=== PATIENT | female | born 1945 | race Two or more races ===

== ENCOUNTER 2024-03-22 19:19 | Inpatient (IN) | payer MEDICARE, OTHER ==
[~2024-03-22] VITALS: Ht 162.6 cm; Wt 83.5 kg
[2024-03-22 20:08] LABS: BASOPHILS % (AUTO) 0.4 % (0.0-2.0); EOSINOPHILS % (AUTO) 0.1 % (0.0-6.0); HEMATOCRIT 36 % (33-45); HEMOGLOBIN 11.8 g/dL (11.5-14.8); LYMPHOCYTES # (AUTO) 0.5 K/uL (0.8-4.8); LYMPHOCYTES % (AUTO) 11.5 % (20.0-44.0); MEAN CORPUSCULAR HEMOGLOBIN 27 PG (26.0-33.0); MEAN CORPUSCULAR HGB CONC 33 g/dl (31.0-36.0); MEAN CORPUSCULAR VOLUME 83 fL (82-100); MONOCYTES # (AUTO) 0.7 K/uL (0.1-1.30); MONOCYTES % (AUTO) 17.4 % (2.0-12.0); NEUTROPHILS # (AUTO) 2.8 K/uL (1.8-8.9); NEUTROPHILS % (AUTO) 70.6 % (43.0-81.0); PLATELET COUNT (AUTO) 171 K/uL (150-450); RED BLOOD CELL COUNT(AUTO) 4.38 MIL/uL (4.0-5.2); RED CELL DISTRIBUTION WIDTH 14.1 % (11.5-15.0)
[2024-03-22] MEDS ORDERED: VANCOMYCIN 1 GM /D5W 250 ML PB IV ONE (20:08)
[2024-03-22] MEDS ORDERED: PIPERACI/TAZO 3.375GM/D5W 50ML PB IV ONE (20:08)
[2024-03-22] MEDS: PIPERACILLIN /TAZOBACTAM 3.375 G in IV D5W 50 ML IV ONE (20:25)
[2024-03-22 20:30] LABS: CALCIUM, SERUM 8.8 mg/dL (8.5-10.1); CARBON DIOXIDE 28 mmol/L (21-32); CHLORIDE 99 mmol/L (98-107); CREATININE 0.7 mg/dL (0.6-1.3); GLUCOSE 116 mg/dL (74-106); POTASSIUM 3.8 mmol/L (3.5-5.1); SODIUM SERUM 135 mmol/L (136-145); UREA NITROGEN, BLOOD 10 mg/dL (7-18)
[2024-03-22] MEDS: IV NS 0.9% 1,000 ML BAG IV ONE (20:30)
[2024-03-22 20:35] LABS: LACTIC ACID 0.7 mmol/L (0.4-2.0)
[2024-03-22 20:41] LABS: ALANINE AMINOTRANSFERASE 36 U/L (12-78); ALBUMIN 3.2 g/dL (3.4-5.0); ALKALINE PHOSPHATASE 45 U/L (46-116); ASPARTATE AMINOTRANSFERASE 46 U/L (15-37); BILIRUBIN,DIRECT 0.1 mg/dL (0.0-0.2); BILIRUBIN,TOTAL 0.4 mg/dL (0.2-1.0)
[2024-03-22 20:42] LABS: INR 1.08 (0.91-1.10); PROTHROMBIN TIME 11.4 SECS (9.2-11.1)
[2024-03-22] MEDS: VANCOMYCIN 1 GM in IV D5W 250 ML IV ONE (20:45)
[2024-03-22 20:46] LABS: APPEARANCE,URINE CLEAR (CLEAR); BILIRUBIN,URINE NEGATIVE (NEGATIVE); BLOOD, URINE 1+ Ery/uL (NEGATIVE); COLOR,URINE YELLOW (YELLOW); KETONES,URINE TRACE mg/dL (NEGATIVE); LEUKOCYTE ESTERASE ,URINE NEGATIVE (NEGATIVE); NITRITE, URINE NEGATIVE (NEGATIVE); PROTEIN,URINE TRACE mg/dl (NEGATIVE); UGLUCOSE NEGATIVE (NEGATIVE); UROBILINOGEN,URINE 0.2 EU/dL (0.2)
[2024-03-22 21:13] LABS: ADD URINE CULTURE YES; BACTERIA,URINE 2+ /HPF (None Seen); WBC,URINE NONE SEEN /HPF (0-3)
[2024-03-22 21:15] LABS: MUCUS,URINE Moderate /LPF (None Seen)
[2024-03-22] MEDS ORDERED: ACETAMINOPHEN 650 MG/SUPP.RECT RC ONE (21:17)
[2024-03-22] MEDS: ACETAMINOPHEN 650 MG/SUPP.RECT RC PRN (21:26)
[2024-03-22 21:39] LABS: LYMPHOCYTES % (MANUAL) 13 % (16-48); MONOCYTES % (MANUAL) 18 % (0-11.0); NEUTROPHILS % (MANUAL) 69 (42-76); PLATELET ESTIMATE ADEQUATE
[2024-03-22 21:40] LABS: ANISOCYTOSIS 1+
[2024-03-22] MEDS ORDERED: MAG HYDROX/AL HYDROX/SIMETH 30 ML UDC PO PRN (22:00)
[2024-03-22] MEDS ORDERED: MAGNESIUM HYDROXIDE 30 ML UDC PO PRN (22:00)
[2024-03-22] MEDS ORDERED: ONDANSETRON HCL/PF 4 MG/2 ML VIAL IVP PRN (22:00)
[2024-03-22] MEDS ORDERED: Z GUARD REMEDY 4 OZ OINT TP PRN (22:00)
[2024-03-22] MEDS ORDERED: HYDROCODONE/APAP 5/325MG TABLET PO PRN (22:00)
[2024-03-22] MEDS ORDERED: ZOLPIDEM TARTRATE 5 MG TABLET PO PRN (22:00)
[2024-03-22] MEDS ORDERED: CEFTRIAXONE 1GM BAG (ER ONLY) 50 ML IV ONE (22:21)
[2024-03-22 22:30] VITALS: BP 121/65; TEMP 102.2; O2SAT 93
[2024-03-22] MEDS: CEFTRIAXONE 1 G in IV D5W 50 ML IV SCH (22:35)
[2024-03-22] MEDS: ACETAMINOPHEN 325 MG TABLET PO PRN (23:19)
[2024-03-23] VITALS: BP 111/67; TEMP 100.2; O2SAT 96
[2024-03-23] MEDS: IV NS 0.9% 1,000 ML IV PRN (03:19)
[2024-03-23 04:00] VITALS: BP 112/63; TEMP 100.2; O2SAT 93
[2024-03-23 08:00] VITALS: BP 116/66; TEMP 97.9; O2SAT 97
[2024-03-23] MEDS ORDERED: MAGN400O6 PO (08:15)
[2024-03-23] MEDS ORDERED: ATOR10TA PO (08:15)
[2024-03-23] MEDS ORDERED: BISA10SU11 RC (08:15)
[2024-03-23] MEDS ORDERED: DOCU100C36 PO (08:15)
[2024-03-23] MEDS ORDERED: PALI234D IM (08:15)
[2024-03-23] MEDS ORDERED: CALC-494 PO (08:15)
[2024-03-23] MEDS ORDERED: NA P133E RC (08:15)
[2024-03-23] MEDS ORDERED: CRAN300T PO (08:15)
[2024-03-23] MEDS ORDERED: CHOL200026 PO (08:15)
[2024-03-23] MEDS ORDERED: ACET325T53 PO (08:15)
[2024-03-23] MEDS: PANTOPRAZOLE 40 MG TABLET.DR PO SCH (08:15)
[2024-03-23 12:00] VITALS: BP 118/65; TEMP 98.8; O2SAT 97
[2024-03-23 16:00] VITALS: BP 119/73; TEMP 99.3; O2SAT 97
[2024-03-23 20:00] VITALS: BP 110/66; TEMP 98.4; O2SAT 97
[2024-03-24] VITALS: BP 125/77; TEMP 99.1; O2SAT 94
[2024-03-24 04:00] VITALS: BP 118/72; TEMP 99.1; O2SAT 94
[2024-03-24 08:00] VITALS: BP 120/72; TEMP 98.1; O2SAT 95
[2024-03-24 12:00] VITALS: BP 111/68; TEMP 97.9; O2SAT 95
[2024-03-24 16:00] VITALS: BP 118/63; TEMP 97.6; O2SAT 96
[2024-03-24 20:00] VITALS: BP 109/68; TEMP 98.8; O2SAT 95
[2024-03-25] VITALS: TEMP 98.5
[2024-03-25 04:00] VITALS: BP 112/74; TEMP 98.2; O2SAT 100
[2024-03-25 08:00] VITALS: BP_SYST 119; BP_SYST 124; BP_DIAS 72; BP_DIAS 94; TEMP 97.6; TEMP 97.8; O2SAT 96; O2SAT 98
[2024-03-25] MEDS: OLANZAPINE 10 MG VIAL IM SCH (10:00)
[2024-03-25] MEDS ORDERED: LORAZEPAM 1 MG TABLET PO PRN (10:00)
[2024-03-25] MEDS ORDERED: CEPH-570 PO (10:48)
[2024-03-25 12:00] VITALS: BP 141/73; TEMP 98.1; O2SAT 95
[2024-04-16] MEDS ORDERED: PALIPERIDONE PALMITATE 234 MG/1.5 ML SYRINGE IM SCH (09:00)
== END 2024-03-25 15:05 | DRG 640 ==
LOC: ER 19:22 → TELE1 20:29
PROVIDERS: ADMIT Nurse Practitioner Acute Care; ATTEND Internal Medicine
DX: E86.0 Dehydration (principal); G93.41 Metabolic encephalopathy; N39.0 Urinary tract infection, site not specified; E44.0 Moderate protein-calorie malnutrition; F20.0 Paranoid schizophrenia; E87.1 Hypo-osmolality and hyponatremia; E86.1 Hypovolemia; E88.09 Other disorders of plasma-protein metabolism, not elsewhere classified; F03.90 Unspecified dementia, unspecified severity, without behavioral disturbance, psychotic disturbance, mood disturbance, and anxiety; Z20.822 Contact with and (suspected) exposure to COVID-19; F41.9 Anxiety disorder, unspecified; B96.89 Other specified bacterial agents as the cause of diseases classified elsewhere
CPT/HCPCS: 36415; 70450-TC; 71045-TC; 80048-TC; 80076-TC; 81001; 83605-TC; 84484-TC; 85025-TC; 85730-TC; 87040-TC; 87081-TC; 87086-TC; 97110-TC; 97116-TC; 97530-TC; A4223; G0378; J0696; J2543; J3370; J3490; J7030; J7040; J7060